=== PATIENT | male | born 1980 | race Caucasian/White ===

== ENCOUNTER 2021-02-11 17:45 | Emergency (ER) | payer BC, SELFPAY ==
[2021-02-11 17:56] VITALS: BP 143/78; PULSE 92; RESP 16; TEMP 36.7; O2SAT 99
--- NOTE | 2021-02-11 18:23 | ED.SKABFB ---
HPI - Skin/Abscess/Foreign Bdy General Chief complaint: Skin/Abscess/Foreign Body Stated complaint: Insect Bite History of Present Illness HPI narrative: This is 40 year old male that comes in because he has this fine rash in his head and on his chest it is itchy and painful if he lays down. Patient states that he can always tell that it there when he lays down due to pain. Patient states that he is not taking much although he does take benadryl which does not help for that long Related Data Allergies Allergy/AdvReac Type Severity Reaction Status Date / Time No Known Allergies Allergy Verified 02/11/21 17:55 Review of Systems Review of Systems: CONSTITUTIONAL: Denies fever, chills, or sweats. EYES: Denies visual changes, redness, or discharge. ENT: Denies rhinorrhea, congestion, sore throat, or otalgia. CARDIOVASCULAR:Denies chest pain, palpitations, or edema. RESPIRATORY: Denies cough or dyspnea. GASTROINTESTINAL: Denies abdominal pain, nausea, vomiting, or diarrhea. GENITOURINARY: Denies dysuria or hematuria. SKIN:report rash or itching. MUSCULOSKELETAL:Denies back pain, joint pain, or myalgia. NEUROLOGIC: Denies headache, numbness, or weakness. PSYCHIATRIC:Denies anxiety or depression PMFSH Comments At time as signature, I have reviewed and agree with nursing past medical, social, surgical and family history. Please see nursing chart for further information. There is no relevant family history pertinent to the presenting complaint. Exam Narrative: GENERAL:Well-appearing, well-nourished, and in no acute distress. HEAD:Normocephalic, atraumatic. EYES: PERRLA and EOMI. ENT: Nares clear, no rhinorrhea or epistaxis. Mucous membranes moist. NECK: Supple. CHEST: Clear to auscultation. No respiratory distress. HEART: Regular rate and rhythm. Normal peripheral pulses. ABDOMEN: Soft, nontender, nondistended, normal active bowel sounds. EXTREMITIES: Normal range of motion. No edema. SKIN: Warm, dry, red, fine pin point papules, there are several johnson angiomas on chest wall NEURO: No focal deficits. Alert and oriented x3. Course Vital Signs Vital signs: Vital Signs Temperature 98.0 F 02/11/21 17:56 Pulse Rate 92 02/11/21 17:56 Respiratory Rate 16 02/11/21 17:56 Blood Pressure 143/78 H 02/11/21 17:56 Pulse Oximetry 99 02/11/21 17:56 Temperature 98.0 F 02/11/21 17:56 Pulse Rate 92 02/11/21 17:56 Respiratory Rate 16 02/11/21 17:56 Blood Pressure 143/78 H 02/11/21 17:56 Pulse Oximetry 99 02/11/21 17:56 MDM - Skin/Abscess/Foreign Bdy Differential Diagnosis Differential diagnosis: Likely abscess of skin or subcutaneous tissue, dermatophytosis, urticaria, herpes zoster, allergic reaction to drug, cellulitis, eczema, insect bites, impetigo and contact dermatitis Discharge Plan Discharge Clinical Impression: AD (atopic dermatitis), Rash and nonspecific skin eruption Patient Disposition: Home, Self-Care Condition: Stable Instructions: Antibiotic Form, Eczema (ED), Acute Rash (ED) Additional Instructions: Use skin creams/lotion, such as those containing calamine or pramoxine to reduce itchiness Avoid scratching when possible to prevent worsening of the condition and disruption of the skin that could lead to bacterial infection To relieve itching, place a cool washcloth or some ice over the area that itches, rather than scratching Return to the office or seek ER visit if condition is not improving or worsens with fever, swelling, difficulty breathing or swallowing. You may want to consider dermatitis Prescriptions: New prednisone 10 mg tablet 10 mg PO DAILY Qty: 55 RF: 0 triamcinolone acetonide 0.025 % cream 1 applic topical BID Qty: 15 RF: 0 Follow-up/Referrals: PHYSICIAN NOT ON STAFF,NONSTAFF [Primary Care Provider] - Time of Disposition: 18:46
== END 2021-02-11 18:56 | disposition home or self-care (01) ==
PROVIDERS: Emergency Provider Nurse Practitioner Family
DX: L20.9 Atopic dermatitis, unspecified (principal); R21 Rash and other nonspecific skin eruption
CPT/HCPCS: 99203; G0463